=== PATIENT | female | born 1950 | race Caucasian/White ===

== ENCOUNTER 2021-03-14 16:07 | Inpatient (IN) | payer MEDICARE, BC ==
[~2021-03-14] VITALS: Ht 175.3 cm; Wt 95.3 kg
[2021-03-14] MEDS ORDERED: ACETAMINOPHEN 325 MG TABLET PO ONE (16:45)
[2021-03-14 17:12] LABS: HEMATOCRIT 32.8 % (31.2-41.9); MEAN CORPUSCULAR HEMOGLOBIN 28.6 uug (24.7-32.8); MEAN CORPUSCULAR VOLUME 86.9 fL (75.5-95.3); PLATELET COUNT (AUTO) 430 K/uL (179-408)
[2021-03-14] MEDS ORDERED: IV NORMAL SALINE 1000 ML BAG IV ONE (17:15)
[2021-03-14] MEDS ORDERED: PIPERACILLIN SODIUM/TAZOBACTAM 3.375 G in IV DEXTROSE 5% 50 ML IV ONE (17:15)
[2021-03-14] MEDS ORDERED: VANCOMYCIN 1G/D5W 200 ML PIGGYBACK IV ONE (17:15)
[2021-03-14 17:18] LABS: POTASSIUM 3.7 mmol/L (3.5-5.1)
[2021-03-14] MEDS ORDERED: BUPR-319 PO (17:22)
[2021-03-14 17:24] LABS: BILIRUBIN,DIRECT 0.1 mg/dL (0.0-0.2); BILIRUBIN,TOTAL 0.2 mg/dL (0.2-1.0); TOTAL PROTEIN, SERUM 7.3 g/dL (6.4-8.2)
[2021-03-14] MEDS ORDERED: PIPERACILLIN/TAZOBACTAM/D5W 50 ML IV ONE (17:36)
[2021-03-14] MEDS ORDERED: ACETAMINOPHEN 325 MG TABLET ONE (17:36)
[2021-03-14] MEDS ORDERED: VANCOMYCIN IV 200 ML ONE (17:37)
--- NOTE | 2021-03-14 18:20 | NUR ---
Redressed foot wounds.
[2021-03-14] MEDS ORDERED: DESM0.2T23 PO (18:22)
[2021-03-14] MEDS ORDERED: CHOL3000 PO (18:22)
[2021-03-14] MEDS ORDERED: FURO40TA5 PO (18:23)
[2021-03-14] MEDS ORDERED: FOLI1TAB94 PO (18:23)
[2021-03-14] MEDS ORDERED: MECL-225 PO (18:24)
[2021-03-14] MEDS ORDERED: METH2.5T PO (18:25)
[2021-03-14] MEDS ORDERED: NIFE-34 PO (18:27)
[2021-03-14] MEDS ORDERED: OMEP20CA15 PO (18:27)
[2021-03-14] MEDS ORDERED: OXYC-133 PO (18:28)
[2021-03-14] MEDS ORDERED: ESTR0.623 PO (18:29)
[2021-03-14] MEDS ORDERED: PROG100C15 GT (18:30)
[2021-03-14] MEDS ORDERED: ROPI0.5T4 PO (18:31)
[2021-03-14] MEDS ORDERED: SECU150P2 SQ (18:32)
[2021-03-14] MEDS ORDERED: ALPR1TAB7 PO (18:33)
[2021-03-14] MEDS ORDERED: VENL150C58 PO (18:34)
[2021-03-14] MEDS ORDERED: MAGNESIUM HYDROXIDE 30 ML LIQUID UDC PO PRN (18:45)
[2021-03-14] MEDS ORDERED: Z GUARD REMEDY PASTE 57 GM TUBE TOP PRN (18:45)
[2021-03-14] MEDS ORDERED: ACETAMINOPHEN 325 MG TABLET PO PRN (18:45)
[2021-03-14] MEDS ORDERED: ONDANSETRON 4 MG/2 ML VIAL IV PRN (18:45)
--- NOTE | 2021-03-14 18:55 | NUR ---
Cleaned pt, replaced linens, diapered.
--- NOTE | 2021-03-14 19:19 | NUR ---
Noel: [phone]
--- NOTE | 2021-03-14 19:30 | NUR ---
Assumed care of patient from day shift nurse. Patient AAOx4. In no apparent distress. Vancomycin IV and 1st bag of NS infusing at this time.
--- NOTE | 2021-03-14 21:33 | NUR ---
Report given to [facility] ANATOLIY Brown. Patient to be admitted to [facility] unit for Dx Osteomyelitis, room 314.
[2021-03-14 22:00] VITALS: BP 168/87
--- NOTE | 2021-03-14 22:00 | NUR ---
Pt. admitted to [facility] unit, room 314, under care of Dr. Steele. Belongs List completed.
[2021-03-14] MEDS: HYDROCODONE/APAP 5-325MG TABLET PO PRN (23:38)
[2021-03-14] MEDS: ENOXAPARIN SODIUM 40 MG/0.4 ML DISP.SYRIN SQ SCH (23:40)
[2021-03-15] MEDS: IV NS 1000 ML 1,000 ML IV PRN ×2 (00:05→21:12)
[2021-03-15] MEDS: PIPERACILLIN SODIUM/TAZOBACTAM 3.375 G in IV DEXTROSE 5% 50 ML IV SCH ×2 (00:13→05:14)
[2021-03-15] MEDS ORDERED: PIPERACILLIN SODIUM/TAZO 3.375 GM VIAL ONE (00:16)
[2021-03-15] MEDS ORDERED: VANCOMYCIN HCL 500 MG VIAL ONE (00:17)
[2021-03-15] MEDS ORDERED: VANCOMYCIN 1000 MG VIAL ONE (00:17)
[2021-03-15 04:00] VITALS: BP 156/72
[2021-03-15] MEDS: PANTOPRAZOLE SODIUM 40 MG TABLET.DR PO SCH (06:12)
[2021-03-15 06:46] LABS: HEMATOCRIT 32.5 % (31.2-41.9); MEAN CORPUSCULAR VOLUME 88.1 fL (75.5-95.3); PLATELET COUNT (AUTO) 384 K/uL (179-408)
[2021-03-15] MEDS ORDERED: VANCOMYCIN IV 1,500 MG in IV DEXTROSE 5% 500 ML IV ONE (07:00)
[2021-03-15 07:06] LABS: CREATININE 0.9 mg/dL (0.6-1.3); MAGNESIUM 2.5 mg/dL (1.8-2.4); PHOSPHOROUS 2.5 mg/dL (2.5-4.9); POTASSIUM 3.3 mmol/L (3.5-5.1)
--- NOTE | 2021-03-15 07:30 | NUR ---
Patient received in bed, alert and oriented x4. Patient is complaining of her medications not being re-conciled. aware. On RA with no SOB or difficulties breathing. No acute distress noted. Dressings on b/l LE are C/D/I. IV on left AC patent. IV on right FA patenting running IVF as ordered. No redness or swelling noted. Patient aware of MRI of LE with contrast today. Consent received on file. Call light and personal belongings within easy reach. Will continue to monitor.
[2021-03-15 08:31] LABS: THYROID STIMULATING HORMONE 0.478 mIU/mL (0.358-3.740)
[2021-03-15 09:09] LABS: NEUTROPHILS % (MANUAL) 0 % (42-75)
[2021-03-15] MEDS: HYDROCODONE/APAP 5-325MG TABLET PO PRN (09:31)
[2021-03-15] MEDS ORDERED: MECLIZINE HCL 12.5 MG TABLET PO PRN (11:15)
[2021-03-15] MEDS ORDERED: ALPRAZOLAM 0.5 MG TABLET PO PRN (11:15)
[2021-03-15] MEDS ORDERED: METHOTREXATE SODIUM 2.5 MG TABLET PO SCH (11:15)
[2021-03-15 11:19] VITALS: BP 163/76
[2021-03-15] MEDS ORDERED: MORPHINE SULFATE 2 MG/1 ML DISP.SYRIN IV ONE (11:30)
--- NOTE | 2021-03-15 11:30 | NUR ---
Ambulance arrived at 1100 for pickup, but patient refused to go before pain medications, dressing change, and BM. Order for morphine 1mg once given by Dr. Steele and administered as ordered. Dressings on b/l LE changed. Patient attempted BM, but not sucessful. Left the floor in satisfactory condition at 1200.
[2021-03-15] MEDS ORDERED: PIPERACILLIN SODIUM/TAZOBACTAM 3.375 G in IV DEXTROSE 5% 50 ML IV SCH (12:00)
[2021-03-15] MEDS ORDERED: DESMOPRESSIN ACETATE 0.2 MG PO SCH (13:00)
--- NOTE | 2021-03-15 13:00 | NUR ---
[facility] MRI Hilda called to let me know that patient is refusing MRI because of pain. notified and morphine was ordered, but patient refused the morphine after much deliberation. Patient states she would rather have oxycodone and notified with oxycodone ordered. Ryan from pharmacy contacted at [facility] to work on administering medication, but Hilda from MRI called back stating patient refused stating that she needed "something else." Asked what she would like and she didn't remember the name of the medication. She stated that she just does not want the MRI done at this time, so patient will just be returning. No medications were ordered nor administered at [facility]. aware.
[2021-03-15] MEDS ORDERED: PIPERACILLIN SODIUM/TAZOBACTAM 3.375 G in IV DEXTROSE 5% 100 ML IV SCH (14:00)
[2021-03-15] MEDS: buPROPion XL 150 MG TAB.SR.24H PO SCH (14:43)
[2021-03-15] MEDS: CHOLECALCIFEROL 1,000 UNIT TABLET PO SCH (14:43)
[2021-03-15] MEDS: FOLIC ACID 1 MG TABLET PO SCH (14:43)
[2021-03-15] MEDS: POTASSIUM CHLORIDE 10 MEQ TAB.PRT.SR PO SCH ×2 (14:45→17:10)
[2021-03-15] MEDS: FUROSEMIDE 40 MG TABLET PO SCH (14:45)
[2021-03-15] MEDS: NIFEdipine XL 60 MG TABSR PO SCH ×2 (14:45→21:05)
[2021-03-15] MEDS: MEROPENEM 0.5 G in IV NORMAL SALINE 50 ML IV SCH ×2 (14:53→21:05)
[2021-03-15 15:34] VITALS: BP 134/103
[2021-03-15] MEDS ORDERED: Medication Not On Formulary EA (Omeprazole 20 MG) PO SCH (17:00)
[2021-03-15] MEDS: ropiniROLE 0.5 MG TABLET PO SCH ×3 (17:10→23:17)
[2021-03-15] MEDS: OXYCODONE/APAP 5-325 MG TABLET PO PRN (17:10)
[2021-03-15] MEDS: VENLAFAXINE XR 150 MG CAP.SR.24H PO SCH (17:10)
--- NOTE | 2021-03-15 17:30 | NUR ---
Patient c/o b/l LE dressings again. Requests that they be changed and was done as requested from patient. Patient states that the medication she couldn't think of was pregabalin 100mg that she takes twice daily. Updated on home medications under medication reconcilation and MD notified. Will continue to monitor.
[2021-03-15] MEDS ORDERED: PREG100C PO (18:27)
[2021-03-15 20:14] VITALS: BP 131/79
[2021-03-15] MEDS: ENOXAPARIN SODIUM 40 MG/0.4 ML DISP.SYRIN SQ SCH (20:26)
[2021-03-15] MEDS ORDERED: PROGESTERONE 100MG CAP PO SCH (21:00)
[2021-03-16] MEDS ORDERED: VANCOMYCIN IV 1,500 MG in IV DEXTROSE 5% 500 ML IV SCH (01:00)
[2021-03-16] MEDS: ropiniROLE 0.5 MG TABLET PO SCH ×4 (04:16→16:26)
[2021-03-16 04:46] VITALS: BP 139/70
[2021-03-16] MEDS: MEROPENEM 0.5 G in IV NORMAL SALINE 50 ML IV SCH ×2 (05:14→14:04)
[2021-03-16] MEDS: PANTOPRAZOLE SODIUM 40 MG TABLET.DR PO SCH (06:17)
[2021-03-16] MEDS: OXYCODONE/APAP 5-325 MG TABLET PO PRN ×2 (06:25→18:47)
[2021-03-16 06:35] LABS: HEMATOCRIT 34.4 % (31.2-41.9); MEAN CORPUSCULAR HEMOGLOBIN 28.6 uug (24.7-32.8); MEAN CORPUSCULAR VOLUME 87.2 fL (75.5-95.3); PLATELET COUNT (AUTO) 426 K/uL (179-408)
[2021-03-16 06:55] LABS: CREATININE 0.7 mg/dL (0.6-1.3); MAGNESIUM 2.3 mg/dL (1.8-2.4); PHOSPHOROUS 2.9 mg/dL (2.5-4.9); POTASSIUM 3.4 mmol/L (3.5-5.1)
--- NOTE | 2021-03-16 07:30 | NUR ---
Patient received in bed, alert and oriented x4. On RA with no SOB or difficulties breathing. No acute distress noted. Dressings on b/l LE are C/D/I. IV on right hand running IVF as ordered. No redness or swelling noted. Call light and personal belongings within easy reach. Will continue to monitor.
[2021-03-16 07:51] VITALS: BP 129/67
[2021-03-16] MEDS: CHOLECALCIFEROL 1,000 UNIT TABLET PO SCH (08:01)
[2021-03-16] MEDS: buPROPion XL 150 MG TAB.SR.24H PO SCH (08:01)
[2021-03-16] MEDS: NIFEdipine XL 60 MG TABSR PO SCH (08:01)
[2021-03-16] MEDS: FOLIC ACID 1 MG TABLET PO SCH (08:01)
[2021-03-16] MEDS: FUROSEMIDE 40 MG TABLET PO SCH (08:01)
[2021-03-16] MEDS: PREGABALIN 100 MG CAPSULE PO SCH ×2 (08:01→16:26)
[2021-03-16] MEDS: VENLAFAXINE XR 150 MG CAP.SR.24H PO SCH (08:02)
--- NOTE | 2021-03-16 09:45 | NUR ---
Dressings on b/l LE changed because patient is complaining that they feel dry. Dressings are C/D/I. Will continue to monitor.
[2021-03-16] MEDS: POTASSIUM CHLORIDE 10 MEQ TAB.PRT.SR PO SCH ×2 (10:41→12:11)
--- NOTE | 2021-03-16 11:00 | NUR ---
Patient scheduled to complete MRI of b/l LE today at 1500, but she refused. Spoke to [facility] supervisor Dr. Ton Cortes who stated he is okay without the MRI of b/l LE if patient refuses. [facility] provider Cedric naranjo. MRI cancelled.
[2021-03-16 11:20] VITALS: BP 118/71
--- NOTE | 2021-03-16 12:42 | NUR ---
WOUND CARE CONSULT: PT FOLLOWED BY PODIATRY FOR WOUND TREATMENT. DEFER TO DPM. LOWER LEG/FEET WRAPPED AT THIS TIME. WILL SEE PRN.
[2021-03-16 14:49] VITALS: BP 134/70
[2021-03-16] MEDS ORDERED: Gentamicin Sulfate 0.1% Oint TOP (19:09)
[2021-03-16] MEDS ORDERED: DOXY-226 PO (19:09)
[2021-03-16] MEDS ORDERED: AMOX-430 PO (19:15)
--- NOTE | 2021-03-16 19:45 | NUR ---
Received order that patient is to be discharged home tonight. Patient is very eager and ready to go. at bedside to take patient home via private car. Patient has dressings noted to bilateral feet. Dressings were previously changed per dayshift RN. Patient refused discharged pictures. vital stable, patient left facility in stable condition. All needs attended.
[2021-03-17] MEDS ORDERED: GENTAMICIN SULFATE 0.1% OINT 15 GM TUBE TOP SCH (09:00)
== END 2021-03-16 22:43 | disposition home or self-care (01) | DRG 864 ==
LOC: ER 16:07 → MEDSURG3 21:38
PROVIDERS: ADMIT Registered Nurse; ATTEND Registered Nurse
DX: R50.83 Postvaccination fever (principal); L03.116 Cellulitis of left lower limb; L03.115 Cellulitis of right lower limb; I87.313 Chronic venous hypertension (idiopathic) with ulcer of bilateral lower extremity; L97.829 Non-pressure chronic ulcer of other part of left lower leg with unspecified severity; L97.819 Non-pressure chronic ulcer of other part of right lower leg with unspecified severity; T50.B95A Adverse effect of other viral vaccines, initial encounter; E66.9 Obesity, unspecified; F32.9 Major depressive disorder, single episode, unspecified; F41.9 Anxiety disorder, unspecified; G25.81 Restless legs syndrome; G89.4 Chronic pain syndrome; I10 Essential (primary) hypertension; K21.9 Gastro-esophageal reflux disease without esophagitis; L40.50 Arthropathic psoriasis, unspecified; M72.2 Plantar fascial fibromatosis; Z20.822 Contact with and (suspected) exposure to COVID-19; R32 Unspecified urinary incontinence; K58.9 Irritable bowel syndrome, unspecified; Y92.009 Unspecified place in unspecified non-institutional (private) residence as the place of occurrence of the external cause; Z86.711 Personal history of pulmonary embolism; Z96.653 Presence of artificial knee joint, bilateral; Z79.890 Hormone replacement therapy; M76.60 Achilles tendinitis, unspecified leg; R53.1 Weakness; Z79.899 Other long term (current) drug therapy; M21.42 Flat foot [pes planus] (acquired), left foot; M21.41 Flat foot [pes planus] (acquired), right foot; M20.42 Other hammer toe(s) (acquired), left foot; M20.41 Other hammer toe(s) (acquired), right foot; B96.5 Pseudomonas (aeruginosa) (mallei) (pseudomallei) as the cause of diseases classified elsewhere; Z68.31 Body mass index [BMI] 31.0-31.9, adult
CPT/HCPCS: 36415; 70030-TC; 71045; 73610; 73630; 73721; 73723; 83605; 83735; 84100; 84443; 85025; 85651; 85730; 86140; 87040; 87070; 87077; 93005; G0378; J1650; J2185; J2270; J2405; J2543; J3370; J3490; J7030; J7060